=== PATIENT | female | born 1955 | race Caucasian/White ===

== ENCOUNTER 2020-04-14 05:09 | Emergency (ER) | payer BC ==
[2020-04-14] MEDS ORDERED: LORazepam 2 MG/ML SDV ONE (05:10)
[2020-04-14] MEDS ORDERED: LORazepam 2 MG/ML SDV IVPUSH ONE (05:11)
--- NOTE | 2020-04-14 05:23 | EDM.PDOC ---
ED HPI GENERAL MEDICAL PROBLEM - General Chief Complaint: Neurological Problem Stated Complaint: AMBULANCE Time Seen by Provider: 04/14/20 05:22 Source of Information: Reports: EMS History Limitations: Reports: Other (seizure unresponsive) - History of Present Illness INITIAL COMMENTS - FREE TEXT/NARRATIVE: EMS arrived at scene of pt who was seizing per family but has stopped. daughter states pt her mother does not want any life support done and has DNR on file in [facility] which states pt is listed as DNR but no document has been signed. daughter wishes pt to be DNR if she goes into cardiopulmon arrest. - Related Data Allergies Allergy/AdvReac Type Severity Reaction Status Date / Time No Known Allergies Allergy Verified 04/14/20 05:29 Home Meds: Home Meds . [Unable to Verify Home Med List] 04/14/20 [History] ED ROS GENERAL - Review of Systems Review Of Systems: Comprehensive ROS is negative, except as noted in HPI. - Physical Exam Exam: See Below Exam Limited By: No Limitations General Appearance: Other (seizure unresponsive) Throat/Mouth: No Airway Compromise Head Exam: Atraumatic Neck: Non-Tender, Full Range of Motion Respiratory/Chest: Decreased Breath Sounds, Rales, Rhonchi Cardiovascular: Regular Rate, Rhythm GI/Abdominal: No Organomegaly, No Distention Neuro Exam (Abbreviated): Unresponsive Psychiatric: Other (unresponsive) Skin Exam: Warm, Dry Course - Vital Signs Last Recorded V/S: Last Vital Signs Temp 36.8 C 04/14/20 05:44 Pulse 127 H 04/14/20 05:15 Resp 31 H 04/14/20 05:15 BP 118/66 04/14/20 05:15 Pulse Ox 96 04/14/20 05:15 - Orders/Labs/Meds Orders: Active Orders 24 hr Category Date Time Status Denise Catheter Insertion [Insert Urinary Catheter] [OM. Care 04/14/20 05:45 Ordered PC] Q24H Urinary Catheter Assessment [RC] ASDIRECTED Care 04/14/20 05:40 Active Head wo Cont [CT] Urgent Exams 04/14/20 05:20 Stop Req CULTURE BLOOD [BC] Stat Lab 04/14/20 05:18 Received CULTURE URINE [RM] Stat Lab 04/14/20 05:49 Received Labs: Laboratory Tests 04/14/20 04/14/20 04/14/20 Range/Units 05:18 05:18 05:18 WBC 8.8 (5.0-10.0) 10^3/uL RBC 3.69 L (4.2-5.4) 10^6/uL Hgb 12.1 (12.0-16.0) g/dL Hct 34.3 L (37.0-47.0) % MCV 93.0 (80-100) fL MCH 32.8 (27.0-34.0) pg MCHC 35.3 H (33.0-35.0) g/dL Plt Count 256 (150-450) 10^3/uL Neut % (Auto) 77.6 H (42.2-75.2) % Lymph % (Auto) 15.1 L (20.5-50.1) % [place] % (Auto) 5.7 (2-8) % Eos % (Auto) 0.9 L (1.0-3.0) % Baso % (Auto) 0.7 (0.0-1.0) % Sodium 140 (136-145) mmol/L Potassium 2.9 L (3.5-5.1) mmol/L Chloride 96 L (98-107) mmol/L Carbon Dioxide 27 (21-32) mmol/L Anion Gap 19.9 H (7-13) mEq/L BUN 19 H (7-18) mg/dL Creatinine 1.80 H (0.55-1.02) mg/dL Est Cr Clr Drug Dosing 27.36 mL/min Estimated GFR (MDRD) 28 BUN/Creatinine Ratio 10.6 (No establ ref range) Glucose 140 H (74-99) mg/dL Lactic Acid 6.3 H* (0.4-2.0) mmol/L Calcium 9.8 (8.5-10.1) mg/dL Total Bilirubin 2.7 H (0.2-1.0) mg/dL AST 141 H (15-37) U/L ALT 49 (14-59) U/L Alkaline Phosphatase 270 H (46-116) U/L Total Protein 6.9 (6.4-8.2) g/dL Albumin 3.2 L (3.4-5.0) g/dL Globulin 3.7 Albumin/Globulin Ratio 0.86 Urine Color (YELLOW) Urine Appearance (CLEAR) Urine pH (5.0-9.0) Ur Specific [place] (1.005-1.030) Urine Protein (NEGATIVE) Urine Glucose (UA) (NEGATIVE) Urine Ketones (NEGATIVE) Urine Occult Blood (NEGATIVE) Urine Nitrite (NEGATIVE) Urine Bilirubin (NEGATIVE) Urine Urobilinogen (0.2-1.0) mg/dL Ur Leukocyte Esterase (NEGATIVE) Urine RBC /HPF Urine WBC (0-5/HPF) /HPF Ur Epithelial Cells (NOT SEEN) /HPF Amorphous Sediment (NOT SEEN) /HPF Urine Bacteria (0-FEW/HPF) /HPF Granular Casts (Auto) Fine Granular Casts (NOT SEEN) /LPF Urine Mucus (NOT SEEN) /LPF 04/14/20 Range/Units 05:49 WBC (5.0-10.0) 10^3/uL RBC (4.2-5.4) 10^6/uL Hgb (12.0-16.0) g/dL Hct (37.0-47.0) % MCV (80-100) fL MCH (27.0-34.0) pg MCHC (33.0-35.0) g/dL Plt Count (150-450) 10^3/uL Neut % (Auto) (42.2-75.2) % Lymph % (Auto) (20.5-50.1) % [place] % (Auto) (2-8) % Eos % (Auto) (1.0-3.0) % Baso % (Auto) (0.0-1.0) % Sodium (136-145) mmol/L Potassium (3.5-5.1) mmol/L Chloride (98-107) mmol/L Carbon Dioxide (21-32) mmol/L Anion Gap (7-13) mEq/L BUN (7-18) mg/dL Creatinine (0.55-1.02) mg/dL Est Cr Clr Drug Dosing mL/min Estimated GFR (MDRD) BUN/Creatinine Ratio (No establ ref range) Glucose (74-99) mg/dL Lactic Acid (0.4-2.0) mmol/L Calcium (8.5-10.1) mg/dL Total Bilirubin (0.2-1.0) mg/dL AST (15-37) U/L ALT (14-59) U/L Alkaline Phosphatase (46-116) U/L Total Protein (6.4-8.2) g/dL Albumin (3.4-5.0) g/dL Globulin Albumin/Globulin Ratio Urine Color [place] (YELLOW) Urine Appearance Slightly cloudy (CLEAR) Urine pH 5.5 (5.0-9.0) Ur Specific [place] >= 1.030 (1.005-1.030) Urine Protein 100 H (NEGATIVE) Urine Glucose (UA) Negative (NEGATIVE) Urine Ketones 15 H (NEGATIVE) Urine Occult Blood Negative (NEGATIVE) Urine Nitrite Positive H (NEGATIVE) Urine Bilirubin Moderate H (NEGATIVE) Urine Urobilinogen 1.0 (0.2-1.0) mg/dL Ur Leukocyte Esterase Negative (NEGATIVE) Urine RBC Not seen /HPF Urine WBC 0-5 (0-5/HPF) /HPF Ur Epithelial Cells Few (NOT SEEN) /HPF Amorphous Sediment Moderate H (NOT SEEN) /HPF Urine Bacteria Few (0-FEW/HPF) /HPF Granular Casts (Auto) Few Fine Granular Casts Rare H (NOT SEEN) /LPF Urine Mucus Rare (NOT SEEN) /LPF Meds: Medications Discontinued Medications Generic Name Dose Route Start Last Admin Trade Name Davidq PRN Reason Stop Dose Admin Acetaminophen 650 mg 04/14/20 05:39 04/14/20 05:44 Tylenol RECTAL 04/14/20 05:40 650 mg NOW STA Administration Levetiracetam 1,000 mg/ Premix 200 mls @ 800 mls/hr 04/14/20 06:32 IV 04/14/20 06:33 ONETIME ONE Lorazepam 2 mg 04/14/20 05:11 04/14/20 05:12 Ativan IVPUSH 04/14/20 05:12 2 mg ONETIME ONE Administration Lorazepam Confirm 04/14/20 05:10 04/14/20 06:06 Ativan Administered 04/14/20 05:11 Not Given Dose 2 mg .ROUTE .STK-MED ONE - Re-Assessments/Exams Free Text/Narrative Re-Assessment/Exam: 04/14/20 06:[address] Cutler who states will come to discussed DNR issue with daughter fro clarification. 04/14/20 06:29 Dr Cutler discussed with pt's daughter and decision is to admit pt here under comfort care. Departure - Departure Time of Disposition: 06:36 Disposition: Admitted As Inpatient 66 Condition: Poor Clinical Impression: Seizure Breast cancer in female Qualifiers: Breast location: unspecified site of breast Estrogen receptor status: unspecified Laterality: unspecified laterality Qualified Code(s): C50.919 - Malignant neoplasm of unspecified site of unspecified female breast - Discharge Information Forms: ED Department Discharge Sepsis Event Note (ED) - Evaluation Sepsis Screening Result: No Definite Risk - Focused Exam Vital Signs: Vital Signs Temp Temp Pulse Resp BP Pulse Ox 04/14/20 05:44 36.8 C 04/14/20 05:15 37.8 C 127 H 31 H 118/66 96 - My Orders Last 24 Hours: My Active Orders 04/14/20 05:18 CULTURE BLOOD [BC] Stat 04/14/20 05:20 Head wo Cont [CT] Urgent 04/14/20 05:40 Urinary Catheter Assessment [RC] ASDIRECTED 04/14/20 05:45 Denise Catheter Insertion [Insert Urinary Catheter] [OM.PC] Q24H 04/14/20 05:49 CULTURE URINE [RM] Stat - Assessment/Plan Last 24 Hours: My Active Orders 04/14/20 05:18 CULTURE BLOOD [BC] Stat 04/14/20 05:20 Head wo Cont [CT] Urgent 04/14/20 05:40 Urinary Catheter Assessment [RC] ASDIRECTED 04/14/20 05:45 Denise Catheter Insertion [Insert Urinary Catheter] [OM.PC] Q24H 04/14/20 05:49 CULTURE URINE [RM] Stat
[2020-04-14] MEDS ORDERED: Acetaminophen 650 MG Supp RECTAL STA (05:39)
--- NOTE | 2020-04-14 05:44 | CR ---
PROCEDURE INFORMATION: Exam: XR Chest, 1 View Exam date and time: 04/14/2020 5:31 AM Age: 64 years old Clinical indication: Other: Seizure TECHNIQUE: Imaging protocol: XR of the chest Views: 1 view. COMPARISON: No relevant prior studies available. FINDINGS: Lungs: Unremarkable. No consolidation. Pleural space: Unremarkable. No pleural effusion. No pneumothorax. Heart/Mediastinum: Unremarkable. No cardiomegaly. Bones/joints: Unremarkable. IMPRESSION: No acute findings.
[2020-04-14 05:46] LABS: ANION GAP 19.9 mEq/L (7-13)
[2020-04-14] MEDS ORDERED: levETIRAcetam in NaCl (iso-os) 1,000 MG in Premix Bag 1 BAG IV ONE ×2 (06:32)
--- NOTE | 2020-04-14 06:55 | PCM.HP ---
H&P History of Present Illness - General Date of Service: 04/14/20 Source of Information: Family History Limitations: Reports: Altered Mental Status - History of Present Illness Initial Comments - Free Text/Narative: The patient is a 64-year-old female with advanced metastatic breast cancer. She has known intracranial metastasis. She was getting radiation therapy for intracranial metastasis. This morning the patient had a seizure at home. Her daughter proceeded to call emergency medical services. Patient was transported to the emergency room and En Route patient started having recurrent seizures. She was given intravenous lorazepam and emergency room and she is now unresponsive. - Related Data Allergies/Adverse Reactions: Allergies Allergy/AdvReac Type Severity Reaction Status Date / Time No Known Allergies Allergy Verified 04/14/20 05:29 Home Medications: Home Meds . 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: Reports: Oncologic (Cancer) History: Reports: Brain, Breast, Lung, Metastatic - Past Surgical History Female Surgical History: Reports: Breast Biopsy Social & Family History - Family History Family Medical History: Noncontributory - Tobacco Use Smoking Status *Q: Unknown Ever Smoked H&P Review of Systems - Review of Systems: Review Of Systems: Unable To Obtain Reason Not Obtained: altered mental status Exam - Exam Exam: See Below - Vital Signs Vital Signs: Last Vital Signs Temp 36.8 C 04/14/20 05:44 Pulse 127 H 04/14/20 05:15 Resp 31 H 04/14/20 05:15 BP 118/66 04/14/20 05:15 Pulse Ox 96 04/14/20 05:15 Weight: 54.885 kg - Exam General: Sedated, Obtunded Neck: Supple, Trachea Midline, 2 Lungs: Clear to Auscultation, Normal Respiratory Effort Cardiovascular: Regular Rate, Regular Rhythm GI/Abdominal Exam: Normal Bowel Sounds, Soft, Non-Tender, No Organomegaly, No Distention, No Abnormal Bruit, No Mass, Pelvis Stable Extremities: Normal Inspection, Normal Range of Motion, Non-Tender, No Pedal Edema, Normal Capillary Refill Neuro Extensive - Mental Status: Other (Patient is unresponsive.) - Patient Data Lab Results Last 24 hrs: Laboratory Results - last 24 hr 04/14/20 04/14/20 04/14/20 Range/Units 05:18 05:18 05:18 WBC 8.8 (5.0-10.0) 10^3/uL RBC 3.69 L (4.2-5.4) 10^6/uL Hgb 12.1 (12.0-16.0) g/dL Hct 34.3 L (37.0-47.0) % MCV 93.0 (80-100) fL MCH 32.8 (27.0-34.0) pg MCHC 35.3 H (33.0-35.0) g/dL Plt Count 256 (150-450) 10^3/uL Neut % (Auto) 77.6 H (42.2-75.2) % Lymph % (Auto) 15.1 L (20.5-50.1) % [place] % (Auto) 5.7 (2-8) % Eos % (Auto) 0.9 L (1.0-3.0) % Baso % (Auto) 0.7 (0.0-1.0) % Sodium 140 (136-145) mmol/L Potassium 2.9 L (3.5-5.1) mmol/L Chloride 96 L (98-107) mmol/L Carbon Dioxide 27 (21-32) mmol/L Anion Gap 19.9 H (7-13) mEq/L BUN 19 H (7-18) mg/dL Creatinine 1.80 H (0.55-1.02) mg/dL Est Cr Clr Drug Dosing 27.36 mL/min Estimated GFR (MDRD) 28 BUN/Creatinine Ratio 10.6 (No establ ref range) Glucose 140 H (74-99) mg/dL Lactic Acid 6.3 H* (0.4-2.0) mmol/L Calcium 9.8 (8.5-10.1) mg/dL Total Bilirubin 2.7 H (0.2-1.0) mg/dL AST 141 H (15-37) U/L ALT 49 (14-59) U/L Alkaline Phosphatase 270 H (46-116) U/L Total Protein 6.9 (6.4-8.2) g/dL Albumin 3.2 L (3.4-5.0) g/dL Globulin 3.7 Albumin/Globulin Ratio 0.86 Urine Color (YELLOW) Urine Appearance (CLEAR) Urine pH (5.0-9.0) Ur Specific [place] (1.005-1.030) Urine Protein (NEGATIVE) Urine Glucose (UA) (NEGATIVE) Urine Ketones (NEGATIVE) Urine Occult Blood (NEGATIVE) Urine Nitrite (NEGATIVE) Urine Bilirubin (NEGATIVE) Urine Urobilinogen (0.2-1.0) mg/dL Ur Leukocyte Esterase (NEGATIVE) Urine RBC /HPF Urine WBC (0-5/HPF) /HPF Ur Epithelial Cells (NOT SEEN) /HPF Amorphous Sediment (NOT SEEN) /HPF Urine Bacteria (0-FEW/HPF) /HPF Granular Casts (Auto) Fine Granular Casts (NOT SEEN) /LPF Urine Mucus (NOT SEEN) /LPF 04/14/20 Range/Units 05:49 WBC (5.0-10.0) 10^3/uL RBC (4.2-5.4) 10^6/uL Hgb (12.0-16.0) g/dL Hct (37.0-47.0) % MCV (80-100) fL MCH (27.0-34.0) pg MCHC (33.0-35.0) g/dL Plt Count (150-450) 10^3/uL Neut % (Auto) (42.2-75.2) % Lymph % (Auto) (20.5-50.1) % [place] % (Auto) (2-8) % Eos % (Auto) (1.0-3.0) % Baso % (Auto) (0.0-1.0) % Sodium (136-145) mmol/L Potassium (3.5-5.1) mmol/L Chloride (98-107) mmol/L Carbon Dioxide (21-32) mmol/L Anion Gap (7-13) mEq/L BUN (7-18) mg/dL Creatinine (0.55-1.02) mg/dL Est Cr Clr Drug Dosing mL/min Estimated GFR (MDRD) BUN/Creatinine Ratio (No establ ref range) Glucose (74-99) mg/dL Lactic Acid (0.4-2.0) mmol/L Calcium (8.5-10.1) mg/dL Total Bilirubin (0.2-1.0) mg/dL AST (15-37) U/L ALT (14-59) U/L Alkaline Phosphatase (46-116) U/L Total Protein (6.4-8.2) g/dL Albumin (3.4-5.0) g/dL Globulin Albumin/Globulin Ratio Urine Color [place] (YELLOW) Urine Appearance Slightly cloudy (CLEAR) Urine pH 5.5 (5.0-9.0) Ur Specific [place] >= 1.030 (1.005-1.030) Urine Protein 100 H (NEGATIVE) Urine Glucose (UA) Negative (NEGATIVE) Urine Ketones 15 H (NEGATIVE) Urine Occult Blood Negative (NEGATIVE) Urine Nitrite Positive H (NEGATIVE) Urine Bilirubin Moderate H (NEGATIVE) Urine Urobilinogen 1.0 (0.2-1.0) mg/dL Ur Leukocyte Esterase Negative (NEGATIVE) Urine RBC Not seen /HPF Urine WBC 0-5 (0-5/HPF) /HPF Ur Epithelial Cells Few (NOT SEEN) /HPF Amorphous Sediment Moderate H (NOT SEEN) /HPF Urine Bacteria Few (0-FEW/HPF) /HPF Granular Casts (Auto) Few Fine Granular Casts Rare H (NOT SEEN) /LPF Urine Mucus Rare (NOT SEEN) /LPF Result Diagrams: 04/14/20 05:18 04/14/20 05:18 Problem List Initiated/Reviewed/Updated: Yes Orders Last 24hrs: Active Orders 24 hr Category Date Time Status Denise Catheter Insertion [Insert Urinary Catheter] [OM. Care 04/14/20 05:45 Ordered PC] Q24H Urinary Catheter Assessment [RC] ASDIRECTED Care 04/14/20 05:40 Active Head wo Cont [CT] Urgent Exams 04/14/20 05:20 Stop Req CULTURE BLOOD [BC] Stat Lab 04/14/20 05:18 Received CULTURE URINE [RM] Stat Lab 04/14/20 05:49 Received Assessment/Plan Comment:: #. Recurrent seizure This is as a result of intracranial metastases from breast cancer #. Intracranial metastasis Patient has had full brain radiation Was told that she can no longer have any more radiation #. Acute kidney injury Serum creatinine is elevated up to 1.8 #. Hypokalemia Serum potassium is at 2.9 #. Lactic acidosis This is as a result of seizure #. Possible urinary tract infection Patient had a fever #. Acute encephalopathy This is due to metabolic encephalopathy from seizure Plan: Admit patient to medical floor for palliative care Family indicated that they are resonant to [facility] comfort cares. There were likely infection treated and it is also okay to start the patient on anti-seizure medications. I discussed need for MRI and neuro consult. There uninterested in does at this point. Start patient on intravenous Keppra Start intravenous Rocephin Lorazepam for breakthrough seizures Correct potassium deficit intravenous fluid for renal failure
[2020-04-14] MEDS ORDERED: LORazepam 2 MG/ML SDV IVPUSH PRN (06:56)
[2020-04-14] MEDS ORDERED: levETIRAcetam in NaCl (iso-os) 1,000 MG in Premix Bag 1 BAG IV SCH ×2 (07:00)
[2020-04-14] MEDS ORDERED: Sodium Chloride 0.9% 1,000 ML IV SCH (07:00)
[2020-04-14] MEDS ORDERED: Dexamethasone 4 MG/ML SDV IVPUSH ONE (07:01)
[2020-04-14] MEDS ORDERED: Potassium Chloride 20 MEQ in Premix Bag 2 BAG IV ONE (07:03)
[2020-04-14] MEDS ORDERED: cefTRIAXone 1 GM in Sodium Chloride 0.9% 50 ML IV SCH (07:15)
[2020-04-14] MEDS ORDERED: cefTRIAXone 1 GM Vial IVPUSH SCH (08:00)
[2020-04-14] MEDS ORDERED: Potassium Chloride 100 ML IV SCH (08:00)
[2020-04-14] MEDS ORDERED: Enoxaparin 30 MG/0.3 ML Syringe SUBCUT SCH (09:00)
== END 2020-04-14 07:20 | disposition critical access hospital (66) ==
LOC: DL.ED 05:09
DX: R56.9 Unspecified convulsions (principal); C50.919 Malignant neoplasm of unspecified site of unspecified female breast
CPT/HCPCS: 36415; 51702; 71045; 80053; 81001; 83605; 85025; 87040; 87086; 96374; 99284; 99285-25; A9270-GY; J2060

== ENCOUNTER 2020-04-14 06:52 | Inpatient (IN) | payer BC ==
[2020-04-14] MEDS ORDERED: Potassium Chloride 20 MEQ in Premix Bag 2 BAG IV ONE (08:56)
[2020-04-14] MEDS ORDERED: Dexamethasone 4 MG/ML SDV IVPUSH ONE (08:58)
[2020-04-14] MEDS ORDERED: levETIRAcetam 1,000 MG in Sodium Chloride 0.9% 100 ML IV SCH (09:30)
[2020-04-14] MEDS: Sodium Chloride 0.9% 1,000 ML IV SCH ×2 (09:32→22:48)
[2020-04-14] MEDS: Potassium Chloride 100 ML IV SCH ×2 (09:36→12:39)
[2020-04-14] MEDS: levETIRAcetam 1,000 MG in Sodium Chloride 0.9% 100 ML IV SCH ×2 (10:17→21:41)
--- NOTE | 2020-04-14 10:34 | PCM.HP ---
H&P History of Present Illness - General Date of Service: 04/14/20 Admit Problem/Dx: Admission Diagnosis/Problem Admission Diagnosis/Problem Seizure Source of Information: Patient - History of Present Illness Initial Comments - Free Text/Narative: The patient is a 64-year-old female with medical history of diabetes mellitus - Related Data Allergies/Adverse Reactions: Allergies Allergy/AdvReac Type Severity Reaction Status Date / Time No Known Allergies Allergy Verified 04/14/20 07:36 Home Medications: Home Meds . 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 Oncologic (Cancer) History: Reports: Brain, Breast, Liver, Lung, Metastatic - Past Surgical History HEENT Surgical History: Reports: Cataract Surgery, Other (See Below) Other HEENT Surgeries/Procedures: mass in eye from cancer Female Surgical History: Reports: Breast Biopsy Oncologic Surgical History: Reports: Biopsy of Breast Dermatological Surgical History: Reports: None Social & Family History - Family History Family Medical History: Noncontributory - Tobacco Use Smoking Status *Q: Former Smoker Used Tobacco, but Quit: Yes Month/Year Tobacco Last Used: 1998 - Caffeine Use Caffeine Use: Reports: None - Recreational Drug Use Recreational Drug Use: No Exam - Vital Signs Vital Signs: Last Vital Signs Temp 37.1 C 04/14/20 08:00 Pulse 118 H 04/14/20 08:00 Resp 32 H 04/14/20 08:00 BP 108/63 04/14/20 08:00 Pulse Ox 97 04/14/20 08:10 Weight: 53.66 kg Orders Last 24hrs: Active Orders 24 hr Category Date Time Status Admission Diagnosis [ADT] Routine ADT 04/14/20 06:58 Ordered Patient Status [ADT] Routine ADT 04/14/20 06:58 Active Up With Assistance [RC] ASDIRECTED Care 04/14/20 06:56 Active Vital Signs [RC] 00,04,08,12,16,20 Care 04/14/20 06:56 Active Nothing per Oral Now Diet [DIET] Diet 04/14/20 Breakfast Active BASIC METABOLIC PANEL,BMP [CHEM] AM Lab 04/15/20 05:11 Ordered CBC W/O DIFF,HEMOGRAM [HEME] AM Lab 04/15/20 05:11 Ordered LACTIC ACID [CHEM] Q4H Lab 04/14/20 12:00 Ordered LACTIC ACID [CHEM] Q4H Lab 04/14/20 16:00 Ordered POTASSIUM,K [CHEM] Routine Lab 04/14/20 10:30 Ordered Potassium Chloride [KCL 20 MEQ in Water 100 ML] 100 ml Med 04/14/20 09:15 Active IV Q2H Sodium Chloride 0.9% [Normal Saline] 1,000 ml Med 04/14/20 09:30 Active IV ASDIRECTED dexAMETHasone [Dexamethasone] Med 04/14/20 11:30 Active 4 mg IVPUSH Q6H levETIRAcetam [Keppra] 1,000 mg Med 04/14/20 10:00 Active Sodium Chloride 0.9% [Normal Saline] 100 ml IV Q12H Resuscitation Status Routine Resus Stat 04/14/20 08:55 Ordered Medication Orders Dexamethasone (Dexamethasone) 4 mg IVPUSH Q6H CHERYL Potassium Chloride (Kcl 20 Meq In Water 100 Ml) 100 mls @ 50 mls/hr IV Q2H [facility] Stop: 04/14/20 13:14 Last Admin: 04/14/20 09:36 Dose: 50 mls/hr Documented by: KE Sodium Chloride (Normal Saline) 1,000 mls @ 75 mls/hr IV ASDIRECTED CHERYL Last Admin: 04/14/20 09:32 Dose: 75 mls/hr Documented by: KE Levetiracetam 1,000 mg/ Sodium (Chloride) 110 mls @ 440 mls/hr IV Q12H [facility] Last Admin: 04/14/20 10:17 Dose: 440 mls/hr Documented by: KE
[2020-04-14] MEDS: Dexamethasone 4 MG/ML SDV IVPUSH SCH ×3 (11:46→23:35)
[2020-04-14] MEDS ORDERED: Acetaminophen 650 MG Supp RECTAL PRN (20:12)
[2020-04-14] MEDS: LORazepam 2 MG/ML SDV IVPUSH PRN (21:51)
[2020-04-14] MEDS: fentaNYL 100 MCG/2 ML SDV IVPUSH PRN (22:42)
[2020-04-15] MEDS: fentaNYL 100 MCG/2 ML SDV IVPUSH PRN ×5 (02:56→18:07)
[2020-04-15] MEDS: Dexamethasone 4 MG/ML SDV IVPUSH SCH (05:50)
[2020-04-15] MEDS: LORazepam 2 MG/ML SDV IVPUSH PRN ×5 (05:50→18:09)
--- NOTE | 2020-04-15 09:53 | PCM.PN ---
- General Info Date of Service: 04/15/20 Functional Status: Reports: Other (Patient is nonverbal. History is limited.) - Patient Data Vitals - Most Recent: Last Vital Signs Temp 36.7 C 04/15/20 08:00 Pulse 82 04/15/20 00:00 Resp 22 H 04/15/20 08:00 BP 97/68 04/14/20 16:00 Pulse Ox 99 04/15/20 00:00 Weight - Most Recent: 53.66 kg I&O - Last 24 Hours: Intake & Output 04/14/20 04/15/20 04/15/20 22:59 06:59 14:59 Intake Total 110 Output Total 200 250 Balance -200 -140 Lab Results Last 24 Hours: Laboratory Results - last 24 hr 04/14/20 04/14/20 04/14/20 Range/Units 12:15 12:15 16:05 Potassium 3.7 (3.5-5.1) mmol/L Lactic Acid 1.3 1.1 (0.4-2.0) mmol/L Med Orders - Current: Current Medications Acetaminophen (Tylenol) 650 mg RECTAL Q6H PRN PRN Reason: Pain/Fever Fentanyl (Sublimaze) 25 mcg IVPUSH Q1H PRN PRN Reason: Pain (severe 7-10) Levetiracetam 1,000 mg/ Sodium (Chloride) 110 mls @ 440 mls/hr IV Q12H [facility] Last Admin: 04/14/20 21:41 Dose: 440 mls/hr Documented by: Lorazepam (Ativan) 2 mg IVPUSH Q1H PRN PRN Reason: Seizures Lorazepam (Ativan) 1 mg IVPUSH Q6H PRN PRN Reason: Agitation Last Admin: 04/15/20 05:50 Dose: 1 mg Documented by: Sodium Chloride (Saline Flush) 10 ml FLUSH ASDIRECTED PRN PRN Reason: Keep Vein Open Discontinued Medications Dexamethasone (Dexamethasone) 10 mg IVPUSH ONETIME ONE Stop: 04/14/20 08:59 Last Admin: 04/14/20 09:23 Dose: 10 mg Documented by: Dexamethasone (Dexamethasone) 4 mg IVPUSH Q6H CHERYL Last Admin: 04/15/20 05:50 Dose: 4 mg Documented by: Fentanyl (Sublimaze) 25 mcg IVPUSH Q4H PRN PRN Reason: Pain (severe 7-10) Last Admin: 04/15/20 02:56 Dose: 25 mcg Documented by: Potassium Chloride 20 meq/ (Premix) 0 mls @ 50 mls/hr IV ONETIME ONE Stop: 04/14/20 08:57 Last Admin: 04/14/20 09:59 Dose: Not Given Documented by: Potassium Chloride (Kcl 20 Meq In Water 100 Ml) 100 mls @ 50 mls/hr IV Q2H CHERYL Stop: 04/14/20 13:14 Last Infusion: 04/14/20 16:04 Dose: Infused Documented by: Levetiracetam 1,000 mg/ Sodium (Chloride) 110 mls @ 400 mls/hr IV Q12H CHERYL Last Admin: 04/14/20 10:00 Dose: Not Given Documented by: Sodium Chloride (Normal Saline) 1,000 mls @ 75 mls/hr IV ASDIRECTED CHERYL Last Admin: 04/14/20 22:48 Dose: 75 mls/hr Documented by: - Exam General: Sedated, Obtunded HEENT: Pupils Equal, Pupils Reactive, EOMI, Mucous Membr. Moist/[place] Neck: Supple Lungs: Clear to Auscultation, Normal Respiratory Effort Cardiovascular: Regular Rate, Regular Rhythm Neurological: Other (Restless) Sepsis Event Note - Evaluation Sepsis Screening Result: No Definite Risk - Focused Exam Vital Signs: Vital Signs Temp Pulse Resp Pulse Ox 04/15/20 08:00 36.7 C 22 H 04/15/20 05:55 36.8 C 04/15/20 00:00 36.8 C 82 26 H 99 - Problem List Review Problem List Initiated/Reviewed/Updated: Yes - My Orders Last 24 Hours: My Active Orders 04/14/20 08:55 Resuscitation Status Routine 04/14/20 10:00 levETIRAcetam [Keppra] 1,000 mg Sodium Chloride 0.9% [Normal Saline] 100 ml IV Q12H 04/14/20 13:41 Sodium Chloride 0.9% [Saline Flush] 10 ml FLUSH ASDIRECTED PRN Peripheral IV Insertion Adult [OM.PC] Routine 04/14/20 20:12 Acetaminophen [Tylenol] 650 mg RECTAL Q6H PRN 04/14/20 20:14 LORazepam [Ativan] 2 mg IVPUSH Q1H PRN 04/14/20 20:15 LORazepam [Ativan] 1 mg IVPUSH Q6H PRN 04/15/20 09:29 Consult to End of Life Care [Consult to Palliative Care] [CONS] Routine 04/15/20 09:30 fentaNYL [Sublimaze] 25 mcg IVPUSH Q1H PRN - Plan Plan:: #. Recurrent seizure This is as a result of intracranial metastases from breast cancer #. Intracranial metastasis Patient has had full brain radiation Was told that she can no longer have any more radiation #. Acute kidney injury Serum creatinine has been elevated up to 1.8 #. Hypokalemia Serum potassium was at 2.9 #. Lactic acidosis This is as a result of seizure #. Possible urinary tract infection Patient had a fever #. Acute encephalopathy This is due to metabolic encephalopathy from seizure Plan: Family has decided to transition to comfort cares. I would discontinue antibiotics Discontinue intravenous fluids Continue Keppra Will likely benefit from hospice care.
--- NOTE | 2020-04-15 09:55 | PCM.HP ---
H&P History of Present Illness - General Date of Service: 04/14/20 Admit Problem/Dx: Admission Diagnosis/Problem Admission Diagnosis/Problem Seizure History Limitations: Reports: Altered Mental Status - History of Present Illness Initial Comments - Free Text/Narative: The patient is a 64-year-old female with advanced metastatic breast cancer. She has known intracranial metastasis. She was getting radiation therapy for intracranial metastasis. This morning the patient had a seizure at home. Her da ughter proceeded to call emergency medical services. Patient was transported to the emergency room and En Route patient started having recurrent seizures. She was given intravenous lorazepam and emergency room and she is now unresponsive. - Related Data Allergies/Adverse Reactions: Allergies Allergy/AdvReac Type Severity Reaction Status Date / Time No Known Allergies Allergy Verified 04/14/20 07:36 Home Medications: Home Meds . 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 Oncologic (Cancer) History: Reports: Brain, Breast, Liver, Lung, Metastatic - Past Surgical History HEENT Surgical History: Reports: Cataract Surgery, Other (See Below) Other HEENT Surgeries/Procedures: mass in eye from cancer Female Surgical History: Reports: Breast Biopsy Oncologic Surgical History: Reports: Biopsy of Breast Dermatological Surgical History: Reports: None Social & Family History - Family History Family Medical History: Noncontributory - Tobacco Use Smoking Status *Q: Former Smoker Used Tobacco, but Quit: Yes Month/Year Tobacco Last Used: 1998 - Caffeine Use Caffeine Use: Reports: None - Recreational Drug Use Recreational Drug Use: No H&P Review of Systems - Review of Systems: Review Of Systems: Unable To Obtain Reason Not Obtained: Altered mental status Exam - Exam Exam: See Below - Vital Signs Vital Signs: Last Vital Signs Temp 36.7 C 04/15/20 08:00 Pulse 82 04/15/20 00:00 Resp 22 H 04/15/20 08:00 BP 97/68 04/14/20 16:00 Pulse Ox 99 04/15/20 00:00 Weight: 53.66 kg - Exam General: Sedated, Lethargic, Obtunded Lungs: Clear to Auscultation, Normal Respiratory Effort Cardiovascular: Regular Rate, Regular Rhythm GI/Abdominal Exam: Normal Bowel Sounds, Soft, Non-Tender, No Organomegaly, No Distention, No Abnormal Bruit, No Mass, Pelvis Stable Extremities: Normal Inspection, Normal Range of Motion, Non-Tender, No Pedal Edema, Normal Capillary Refill - Patient Data Lab Results Last 24 hrs: Laboratory Results - last 24 hr 04/14/20 04/14/20 04/14/20 Range/Units 12:15 12:15 16:05 Potassium 3.7 (3.5-5.1) mmol/L Lactic Acid 1.3 1.1 (0.4-2.0) mmol/L Result Diagrams: 04/14/20 12:15 Problem List Initiated/Reviewed/Updated: Yes Orders Last 24hrs: Active Orders 24 hr Category Date Time Status Consult to End of Life Care [Consult to Palliative Care Cons 04/15/20 09:29 Ordered ] [CONS] Routine Acetaminophen [Tylenol] Med 04/14/20 20:12 Active 650 mg RECTAL Q6H PRN LORazepam [Ativan] Med 04/14/20 20:15 Active 1 mg IVPUSH Q6H PRN LORazepam [Ativan] Med 04/14/20 20:14 Active 2 mg IVPUSH Q1H PRN Sodium Chloride 0.9% [Saline Flush] Med 04/14/20 13:41 Active 10 ml FLUSH ASDIRECTED PRN fentaNYL [Sublimaze] Med 04/15/20 09:30 Active 25 mcg IVPUSH Q1H PRN levETIRAcetam [Keppra] 1,000 mg Med 04/14/20 10:00 Active Sodium Chloride 0.9% [Normal Saline] 100 ml IV Q12H Peripheral IV Insertion Adult [OM.PC] Routine Oth 04/14/20 13:41 Ordered Medication Orders Acetaminophen (Tylenol) 650 mg RECTAL Q6H PRN PRN Reason: Pain/Fever Fentanyl (Sublimaze) 25 mcg IVPUSH Q1H PRN PRN Reason: Pain (severe 7-10) Levetiracetam 1,000 mg/ Sodium (Chloride) 110 mls @ 440 mls/hr IV Q12H [facility] Last Admin: 04/14/20 21:41 Dose: 440 mls/hr Documented by: Admin: 04/14/20 10:17 Dose: 440 mls/hr Documented by: KE Lorazepam (Ativan) 2 mg IVPUSH Q1H PRN PRN Reason: Seizures Lorazepam (Ativan) 1 mg IVPUSH Q6H PRN PRN Reason: Agitation Last Admin: 04/15/20 05:50 Dose: 1 mg Documented by: Admin: 04/14/20 21:51 Dose: 1 mg Documented by: SILVIA Sodium Chloride (Saline Flush) 10 ml FLUSH ASDIRECTED PRN PRN Reason: Keep Vein Open Assessment/Plan Comment:: #. Recurrent seizure This is as a result of intracranial metastases from breast cancer #. Intracranial metastasis Patient has had full brain radiation Was told that she can no longer have any more radiation #. Acute kidney injury Serum creatinine is elevated up to 1.8 #. Hypokalemia Serum potassium is at 2.9 #. Lactic acidosis This is as a result of seizure #. Possible urinary tract infection Patient had a fever #. Acute encephalopathy This is due to metabolic encephalopathy from seizure Plan: Admit patient to medical floor for palliative care Family indicated that they are resonant to was comfort cares. There were likely infection treated and it is also okay to start the patient on anti-seizure medications. I discussed need for MRI and neuro consult. There uninterested in does at this point. Start patient on intravenous Keppra Start intravenous Rocephin Lorazepam for breakthrough seizures Correct potassium deficit intravenous fluid for renal failure
[2020-04-15] MEDS: levETIRAcetam 1,000 MG in Sodium Chloride 0.9% 100 ML IV SCH ×2 (10:42→21:59)
[2020-04-15] MEDS: Sodium Chloride 0.9% 10 ML Syringe FLUSH PRN (13:08)
--- NOTE | 2020-04-16 09:08 | PCM.DCSUM1 ---
Discharge Summary - Hospital Course Free Text/Narrative:: The patient is a 64-year-old female with medical history of metastatic breast cancer. She is going to have multiple intracranial metastases and has had radiation therapy. She was admitted with recurrent seizures and subsequently was unresponsive. Continued to be poorly responsive and family decided to change her to comfort cares. #. Recurrent seizure This is as a result of intracranial metastases from breast cancer #. Intracranial metastasis Patient has had full brain radiation Was told that she can no longer have any more radiation #. Acute kidney injury Serum creatinine was up to 1.8 #. Hypokalemia Replaced #. Lactic acidosis This was as a result of seizure #. Possible urinary tract infection Patient had a fever #. Acute encephalopathy This is due to metabolic encephalopathy from seizure - Discharge Data Discharge Date: 04/16/20 Discharge Disposition: Home, Self-Care 01 Condition: Good - Referral to Home Health Primary Care Physician: PCP None - Patient Summary/Data Consults: Consultations 04/15/20 09:29 Consult to End of Life Care [Consult to Palliative Care] [CONS] Routine - Discharge Plan Home Medications: Home Meds . [Unable to Verify Home Med List] 04/14/20 [History] - Discharge Summary/Plan Comment DC Time >30 min.: No - General Info Date of Service: 04/16/20 Subjective Update: Patient is nonverbal. She is poorly responsive - Patient Data Vitals - Most Recent: Last Vital Signs Temp 37.2 C 04/16/20 07:58 Pulse 105 H 04/16/20 07:58 Resp 16 04/16/20 07:58 BP 97/68 04/14/20 16:00 Pulse Ox 90 L 04/16/20 07:58 Weight - Most Recent: 53.66 kg I&O - Last 24 hours: Intake & Output 04/15/20 04/16/20 04/16/20 22:59 06:59 14:59 Output Total 450 Balance -450 Med Orders - Current: Current Medications Acetaminophen (Tylenol) 650 mg RECTAL Q6H PRN PRN Reason: Pain/Fever Fentanyl (Sublimaze) 25 mcg IVPUSH Q1H PRN PRN Reason: Pain (severe 7-10) Last Admin: 04/15/20 18:07 Dose: 25 mcg Documented by: Levetiracetam 1,000 mg/ Sodium (Chloride) 110 mls @ 440 mls/hr IV Q12H [facility] Last Admin: 04/15/20 21:59 Dose: 440 mls/hr Documented by: Lorazepam (Ativan) 2 mg IVPUSH Q1H PRN PRN Reason: Seizures Last Admin: 04/15/20 13:07 Dose: 2 mg Documented by: Lorazepam (Ativan) 1 mg IVPUSH Q1H PRN PRN Reason: Agitation Last Admin: 04/15/20 18:09 Dose: 1 mg Documented by: Sodium Chloride (Saline Flush) 10 ml FLUSH ASDIRECTED PRN PRN Reason: Keep Vein Open Last Admin: 04/15/20 13:08 Dose: 10 ml Documented by: Discontinued Medications Dexamethasone (Dexamethasone) 10 mg IVPUSH ONETIME ONE Stop: 04/14/20 08:59 Last Admin: 04/14/20 09:23 Dose: 10 mg Documented by: Dexamethasone (Dexamethasone) 4 mg IVPUSH Q6H [facility] Last Admin: 04/15/20 05:50 Dose: 4 mg Documented by: Fentanyl (Sublimaze) 25 mcg IVPUSH Q4H PRN PRN Reason: Pain (severe 7-10) Last Admin: 04/15/20 02:56 Dose: 25 mcg Documented by: Potassium Chloride 20 meq/ (Premix) 0 mls @ 50 mls/hr IV ONETIME ONE Stop: 04/14/20 08:57 Last Admin: 04/14/20 09:59 Dose: Not Given Documented by: Potassium Chloride (Kcl 20 Meq In Water 100 Ml) 100 mls @ 50 mls/hr IV Q2H [facility] Stop: 04/14/20 13:14 Last Infusion: 04/14/20 16:04 Dose: Infused Documented by: Levetiracetam 1,000 mg/ Sodium (Chloride) 110 mls @ 400 mls/hr IV Q12H [facility] Last Admin: 04/14/20 10:00 Dose: Not Given Documented by: Sodium Chloride (Normal Saline) 1,000 mls @ 75 mls/hr IV ASDIRECTED [facility] Last Admin: 04/14/20 22:48 Dose: 75 mls/hr Documented by: Lorazepam (Ativan) 1 mg IVPUSH Q6H PRN PRN Reason: Agitation Last Admin: 04/15/20 05:50 Dose: 1 mg Documented by: - Exam General: Reports: Lethargic, Obtunded Neck: Reports: Supple Lungs: Reports: Clear to Auscultation, Normal Respiratory Effort Cardiovascular: Reports: Regular Rate, Regular Rhythm
[2020-04-16] MEDS: fentaNYL 100 MCG/2 ML SDV IVPUSH PRN ×2 (10:09→11:15)
[2020-04-16] MEDS: Sodium Chloride 0.9% 10 ML Syringe FLUSH PRN ×2 (10:10→11:14)
[2020-04-16] MEDS: LORazepam 2 MG/ML SDV IVPUSH PRN ×2 (10:11→11:13)
[2020-04-16] MEDS: levETIRAcetam 1,000 MG in Sodium Chloride 0.9% 100 ML IV SCH (10:59)
== END 2020-04-16 11:31 | disposition swing bed (61) | DRG 53 ==
LOC: DL.MS 06:58
PROVIDERS: ADMIT Hospitalist; ATTEND Hospitalist
DX: R56.9 Unspecified convulsions (principal); Z51.5 Encounter for palliative care; C79.31 Secondary malignant neoplasm of brain; C50.919 Malignant neoplasm of unspecified site of unspecified female breast; G93.41 Metabolic encephalopathy; C78.00 Secondary malignant neoplasm of unspecified lung; C78.7 Secondary malignant neoplasm of liver and intrahepatic bile duct; N17.9 Acute kidney failure, unspecified; E87.6 Hypokalemia; E87.2 Acidosis; N39.0 Urinary tract infection, site not specified; Z98.49 Cataract extraction status, unspecified eye; Z87.891 Personal history of nicotine dependence
CPT/HCPCS: 36415; 83605; 84132; 99222; 99231; 99238; J1100; J1953; J2060; J3010; J3480; J7030; J7050

== ENCOUNTER 2020-04-16 09:09 | Inpatient (IN) | payer BC ==
[2020-04-16] MEDS ORDERED: Sodium Chloride 0.9% 10 ML Syringe FLUSH PRN (09:43)
--- NOTE | 2020-04-16 09:53 | PCM.HP ---
H&P History of Present Illness - General Date of Service: 04/16/20 Admit Problem/Dx: Admission Diagnosis/Problem Admission Diagnosis/Problem Comfort measures only status Source of Information: Other - History of Present Illness Initial Comments - Free Text/Narative: The patient is a 64-year-old female with medical history of metastatic breast cancer. She is going to have multiple intracranial metastases and has had radiation therapy. She was admitted with recurrent seizures and subsequently was unresponsive. Continued to be poorly responsive and family decided to change her to comfort cares. #. Recurrent seizure This is as a result of intracranial metastases from breast cancer #. Intracranial metastasis Patient has had full brain radiation Was told that she can no longer have any more radiation #. Acute kidney injury Serum creatinine was up to 1.8 #. Hypokalemia Replaced #. Lactic acidosis This was as a result of seizure #. Possible urinary tract infection Patient had a fever #. Acute encephalopathy This is due to metabolic encephalopathy from seizure - Related Data Allergies/Adverse Reactions: Allergies Allergy/AdvReac Type Severity Reaction Status Date / Time No Known Allergies Allergy Verified 04/16/20 09:22 Home Medications: Home Meds . 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 Oncologic (Cancer) History: Reports: Brain, Breast, Liver, Lung, Metastatic - Past Surgical History HEENT Surgical History: Reports: Cataract Surgery, Other (See Below) Other HEENT Surgeries/Procedures: mass in eye from cancer Female Surgical History: Reports: Breast Biopsy Oncologic Surgical History: Reports: Biopsy of Breast Dermatological Surgical History: Reports: None Social & Family History - Family History Family Medical History: Noncontributory - Caffeine Use Caffeine Use: Reports: None H&P Review of Systems - Review of Systems: Review Of Systems: Unable To Obtain (Patient is unresponsive) Reason Not Obtained: Patient is obtunded and unable to provide history Exam - Exam Exam: See Below - Vital Signs Weight: 59.466 kg - Exam General: Sedated, Lethargic, Obtunded Neck: Supple, Trachea Midline, 2 Lungs: Clear to Auscultation, Normal Respiratory Effort Cardiovascular: Regular Rate, Regular Rhythm Extremities: Normal Inspection, Normal Range of Motion, Non-Tender, No Pedal Edema, Normal Capillary Refill Problem List Initiated/Reviewed/Updated: Yes Orders Last 24hrs: Active Orders 24 hr Category Date Time Status Admission Diagnosis [ADT] Routine ADT 04/16/20 09:43 Ordered Admission Status [Patient Status] [ADT] Routine ADT 04/16/20 09:45 Active Peripheral IV Care [RC] . DIRECTED Care 04/16/20 09:43 Active Up With Assistance [RC] ASDIRECTED Care 04/16/20 09:43 Active Vital Signs [RC] Q4H Care 04/16/20 09:43 Active Consult to End of Life Care [Consult to Palliative Care Cons 04/16/20 09:43 Ordered ] [CONS] Routine Nothing per Oral Now Diet [DIET] Diet 04/16/20 Breakfast Active Acetaminophen [Tylenol] Med 04/16/20 09:43 Ordered 650 mg RECTAL Q6H PRN LORazepam [Ativan] Med 04/16/20 09:43 Ordered 1 mg IVPUSH Q1H PRN LORazepam [Ativan] Med 04/16/20 09:43 Ordered 2 mg IVPUSH Q1H PRN Sodium Chloride 0.9% [Saline Flush] Med 04/16/20 09:43 Ordered 10 ml FLUSH ASDIRECTED PRN Sodium Chloride 0.9% [Saline Flush] Med 04/16/20 09:43 Ordered 10 ml FLUSH ASDIRECTED PRN fentaNYL [Sublimaze] Med 04/16/20 09:43 Ordered 25 mcg IVPUSH Q1H PRN levETIRAcetam [Keppra] 1,000 mg Med 04/16/20 10:00 Ordered Sodium Chloride 0.9% [Normal Saline] 100 ml IV Q12H Peripheral IV Insertion Adult [OM.PC] Routine Oth 04/16/20 09:43 Ordered Medication Orders Acetaminophen (Tylenol) 650 mg RECTAL Q6H PRN PRN Reason: Pain/Fever Fentanyl (Sublimaze) 25 mcg IVPUSH Q1H PRN PRN Reason: Pain (severe 7-10) Levetiracetam 1,000 mg/ Sodium (Chloride) 110 mls @ 440 mls/hr IV Q12H [facility] Lorazepam (Ativan) 2 mg IVPUSH Q1H PRN PRN Reason: Seizures Lorazepam (Ativan) 1 mg IVPUSH Q1H PRN PRN Reason: Agitation Sodium Chloride (Saline Flush) 10 ml FLUSH ASDIRECTED PRN PRN Reason: Keep Vein Open Sodium Chloride (Saline Flush) 10 ml FLUSH ASDIRECTED PRN PRN Reason: Keep Vein Open Assessment/Plan Comment:: The patient is a 64-year-old female with medical history of metastatic breast cancer. She is going to have multiple intracranial metastases and has had radiation therapy. She was admitted with recurrent seizures and subsequently was unresponsive. Continued to be poorly responsive and family decided to change her to comfort cares. Admit patient to swing bed status #. Recurrent seizure This is as a result of intracranial metastases from breast cancer #. Intracranial metastasis Patient has had full brain radiation Was told that she can no longer have any more radiation #. Acute kidney injury Serum creatinine was up to 1.8 #. Hypokalemia Replaced #. Lactic acidosis This was as a result of seizure #. Possible urinary tract infection Patient had a fever #. Acute encephalopathy This is due to metabolic encephalopathy from seizure Start end-of-life care CODE STATUS comfort cares
[2020-04-16] MEDS: levETIRAcetam 1,000 MG in Sodium Chloride 0.9% 100 ML IV SCH ×2 (13:06→22:04)
[2020-04-16] MEDS: LORazepam 2 MG/ML SDV IVPUSH PRN ×4 (13:36→22:17)
[2020-04-16] MEDS: fentaNYL 100 MCG/2 ML SDV IVPUSH PRN ×4 (13:36→22:16)
[2020-04-16] MEDS: Sodium Chloride 0.9% 10 ML Syringe FLUSH PRN (15:47)
[2020-04-16] MEDS ORDERED: Atropine 1% Ophth Soln 5 ML BOTTLE SL SCH (16:15)
[2020-04-16] MEDS: Atropine 1% Ophth Soln 5 ML BOTTLE SL PRN ×2 (17:31→20:05)
[2020-04-17] MEDS: Atropine 1% Ophth Soln 5 ML BOTTLE SL PRN ×3 (01:08→23:21)
[2020-04-17] MEDS: LORazepam 2 MG/ML SDV IVPUSH PRN ×11 (06:01→23:11)
[2020-04-17] MEDS: fentaNYL 100 MCG/2 ML SDV IVPUSH PRN ×5 (06:02→14:14)
[2020-04-17] MEDS: Sodium Chloride 0.9% 10 ML Syringe FLUSH PRN ×2 (08:34→11:15)
[2020-04-17] MEDS ORDERED: LEVETIRACETAM IN NACL IV SCH (11:00)
[2020-04-17] MEDS: levETIRAcetam 1,000 MG in Sodium Chloride 0.9% 100 ML IV SCH ×3 (11:24→23:11)
[2020-04-17] MEDS: Morphine 2 MG/ML SYRINGE IVPUSH PRN ×6 (15:32→23:11)
[2020-04-18] MEDS: Morphine 2 MG/ML SYRINGE IVPUSH PRN ×7 (00:55→23:06)
[2020-04-18] MEDS: LORazepam 2 MG/ML SDV IVPUSH PRN ×8 (00:56→23:10)
[2020-04-18] MEDS: Atropine 1% Ophth Soln 5 ML BOTTLE SL PRN ×5 (05:43→20:47)
[2020-04-18] MEDS: Acetaminophen 650 MG Supp RECTAL PRN ×2 (10:26→18:22)
[2020-04-18] MEDS: levETIRAcetam 1,000 MG in Sodium Chloride 0.9% 100 ML IV SCH ×2 (10:47→22:33)
[2020-04-18] MEDS: Sodium Chloride 0.9% 10 ML Syringe FLUSH PRN ×3 (14:06→22:36)
[2020-04-19] MEDS: Atropine 1% Ophth Soln 5 ML BOTTLE SL PRN ×2 (00:23→04:23)
[2020-04-19] MEDS: Sodium Chloride 0.9% 10 ML Syringe FLUSH PRN ×5 (02:29→17:21)
[2020-04-19] MEDS: LORazepam 2 MG/ML SDV IVPUSH PRN ×6 (02:29→17:22)
[2020-04-19] MEDS: Morphine 2 MG/ML SYRINGE IVPUSH PRN ×6 (02:33→17:20)
[2020-04-19] MEDS: levETIRAcetam 1,000 MG in Sodium Chloride 0.9% 100 ML IV SCH (11:03)
[2020-04-19] MEDS: NACL IV SCH ×2 (20:54)
[2020-04-19] MEDS: LEVETIRACETAM IV SCH ×2 (20:54)
[2020-04-19] MEDS ORDERED: LEVETIRACETAM IV SCH (21:00)
[2020-04-20] MEDS: LEVETIRACETAM IV SCH ×4 (10:16→21:22)
[2020-04-20] MEDS: NACL IV SCH ×4 (10:16→21:22)
[2020-04-20] MEDS: Morphine 4 MG/ML Syringe IVPUSH PRN ×2 (11:17→13:18)
[2020-04-20] MEDS: Acetaminophen 650 MG Supp RECTAL PRN ×2 (11:18→17:30)
[2020-04-20] MEDS: LORazepam 2 MG/ML SDV IVPUSH PRN (12:00)
[2020-04-20] MEDS: Atropine 1% Ophth Soln 5 ML BOTTLE SL PRN (12:00)
[2020-04-21] MEDS: Atropine 1% Ophth Soln 5 ML BOTTLE SL PRN ×4 (06:22→14:46)
[2020-04-21] MEDS: LORazepam 2 MG/ML SDV IVPUSH PRN (06:23)
[2020-04-21] MEDS: Sodium Chloride 0.9% 10 ML Syringe FLUSH PRN ×3 (06:24→14:56)
[2020-04-21] MEDS: Morphine 4 MG/ML Syringe IVPUSH PRN ×3 (08:43→14:46)
[2020-04-21] MEDS: NACL IV SCH ×2 (09:26)
[2020-04-21] MEDS: LEVETIRACETAM IV SCH ×2 (09:26)
[2020-04-21] MEDS: Acetaminophen 650 MG Supp RECTAL PRN (15:46)
--- NOTE | 2020-04-21 19:23 | DISCH ---
HISTORY OF PRESENT ILLNESS: The patient is a 64-year-old lady with advanced metastatic breast cancer with metastasis to the brain, admitted because of recurrent seizure and acute encephalopathy. The patient was unresponsive, and family decided to proceed with comfort cares and was transferred to swing bed for continuation of end-of-life care. The patient was made comfortable. She was given lorazepam, morphine, and atropine to keep her comfortable, and the patient on 04/21/2020 at 4:30 p.m., and family was notified. [facility] /[id number]
[2020-04-21] MEDS ORDERED: Morphine 4 MG/ML Syringe IV ONE (19:49)
== END 2020-04-21 16:30 | disposition expired | DRG 862 ==
LOC: UNDOADMIN 09:45 → DL.MS 09:45 → UNDOADMIN 04-18 03:45 → DL.MS 04-18 03:45
PROVIDERS: ADMIT Hospitalist; ATTEND Internal Medicine
DX: Z51.5 Encounter for palliative care (principal); G93.41 Metabolic encephalopathy; R56.9 Unspecified convulsions; C79.31 Secondary malignant neoplasm of brain; N17.9 Acute kidney failure, unspecified; C78.7 Secondary malignant neoplasm of liver and intrahepatic bile duct; C78.00 Secondary malignant neoplasm of unspecified lung; E87.2 Acidosis; C50.919 Malignant neoplasm of unspecified site of unspecified female breast; R47.01 Aphasia; E87.6 Hypokalemia; Z98.49 Cataract extraction status, unspecified eye; Z87.891 Personal history of nicotine dependence; Z28.82 Immunization not carried out because of caregiver refusal; Z98.890 Other specified postprocedural states; Z92.3 Personal history of irradiation
CPT/HCPCS: A9270-GY; J1953; J2060; J2270; J3010; J7050